=== PATIENT | female | born 1955 | race Caucasian/White ===

== ENCOUNTER 2017-06-03 11:34 | Emergency (ER) | payer OTHER ==
[~2017-06-03] VITALS: Ht 177.8 cm; Wt 86.0 kg
[~2017-06-03 11:34] MED LIST: ACET-1138 PO; ASPEC325 PO; ATOR-22 PO; B12 INJECT IM; DILT240C48 PO; DVN/160 PO; FOLI1TAB7 PO; FRRG PO; FRS/40 PO; LORA-741 PO; MCRK20 PO; METO1TAB69 PO; MULT-506 PO; NTRGSLP4 SL; OXYSR10 PO; RXC5 PO
[2017-06-03 11:36] VITALS: TEMP 36.7; Ht 177.8 cm; Wt 86.0 kg
[2017-06-03] MEDS ORDERED: SODIUM CHLORIDE 0.9% 1000ML 1,000 ML IV STA ×2 (12:30→13:17)
--- NOTE | 2017-06-03 12:34 | EMERGENCY ROOM VISIT NOTE ---
History Report prepared by [place]: Lee Sandra Under the Supervision of: Dr. Chase Whitten M.D. First contact with patient: 12:04 Chief Complaint: FALL Stated Complaint: 2 FALLS IN 2 DAYS, HIT HEAD History of Present Illness The patient is a 61 year old female who presents to the Emergency Room with complaints of a sudden fall occurring yesterday and the day before. The patient states that she had a GI bug a few days ago, and she had nausea, vomiting, and diarrhea, though she no longer has these symptoms. The patient states that she feels very dehydrated. She states that she passed out and fell, and she hit her chin and her right shoulder. She states that she also fell two days ago similarly. She states that she currently has a headache, and she currently takes aspirin. Source of History: patient Onset: yesterday and the day before Position: other (global) Quality: other (fall) Timing: other (sudden) Associated Symptoms: + headache Note: Associated symptoms: Dehydration. Review of Systems See HPI for pertinent positives & negatives. A total of 10 systems reviewed and were otherwise negative. Past Medical & Surgical Medical Problems: (1) DJD of right shoulder (2) Recurrent kidney stones Family History FH: myocardial infarction FATHER MOTHER Social History Smoking Status: Never Smoker Alcohol Use: none Drug Use: none Marital Status: Housing Status: lives with significant other Occupation Status: employed Current/Historical Medications Scheduled Acetaminophen (Tylenol Extra Strength), 1,000 MG PO Q8 Aspirin (Aspirin), 1 TAB PO QAM Atorvastatin (Lipitor), 20 MG PO QPM Diltiazem Hcl Coated Beads (Cartia Xt), 1 CAP PO BID Ferrous Gluconate (Ferrous Gluconate), 1 TAB PO DAILY Folic Acid (Folvite), 1 MG PO QAM Furosemide (Lasix), 40 MG PO QAM Metoprolol Succ (Toprol Xl) (Toprol-Xl ), 100 MG PO QAM Multivitamin (Multivitamin), 1 TAB PO QAM Oxycodone HCl (Oxycontin), 10 MG PO Q12 Potassium Chloride (Klor-Con), 40 MEQ PO HS Valsartan (Diovan), 160 MG PO BID [B12 Inject], 1 DOSE IM MONTHLY Scheduled PRN Lorazepam (Ativan), 0.5 MG PO TID PRN for Anxiety Nitroglycerin (Nitrostat), 1 TAB SL UD PRN for CHESTPAIN Oxycodone HCl (Oxycodone HCl), 5-10 MG PO Q4H PRN for Pain Allergies Coded Allergies: Hydrochlorothiazide (Verified Adverse Reaction, Unknown, "SEVERE" HYPONATREMIA, 10/29/16) Physical Exam Vital Signs Date Time Temp Pulse Resp B/P (MAP) Pulse Ox O2 Delivery O2 Flow Rate FiO2 06/03/17 14:39 71 17 124/72 100 06/03/17 12:46 58 13 141/78 99 Room Air 06/03/17 12:38 97 Room Air 06/03/17 12:23 65 108/89 97 66 117/73 86 79/53 06/03/17 12:02 59 06/03/17 11:36 36.7 70 16 114/71 99 Room Air Physical Exam GENERAL: Patient is a healthy-appearing well-nourished female. HEAD: Quarter sized contusion to the chine. Normocephalic EYES: Ocular movements intact pupils equal and react to light OROPHARYNX mucous membranes are moist no exudates present no erythema or edema present NECK: Supple no nuchal rigidity CHEST: Good equal expansion LUNGS: Clear and equal to auscultation CARDIAC: Normal S1 and S2 ABDOMEN: Soft nontender no guarding BACK: No CVA tenderness EXTREMITIES: Quarter sized contusion to the right humeral head. Tenderness to the right wrist. Normal muscle strength in all groups no clubbing cyanosis or edema NEURO: Patient is following commands and answering questions appropriately. Alert and oriented x3 Cranial Nerves 2-12 grossly intact Medical Decision & Procedures ER Provider Diagnostic Interpretation: Radiology results as stated below per my review and radiologist interpretation: RIGHT WRIST MIN 3 VIEWS ROUTINE CLINICAL HISTORY: Right wrist pain status post fall. COMPARISON: None FINDINGS: Alignment of the right carpal bones is anatomic. Oblique projection demonstrates a nondisplaced distal metadiaphyseal fracture of the right radius. There is no acute fracture of the distal right ulna. Carpal bones are intact. IMPRESSION: Acute nondisplaced distal metadiaphyseal fracture of the right radius. Electronically signed by: Javier Rendon M.D. 06/03/2017 1:47 PM Dictated Date/Time: 06/03/2017 1:45 PM \\RIGHT SHOULDER MIN 2 VIEWS ROUTINE CLINICAL HISTORY: Pt c/o Rt Shoulder pain Right pain COMPARISON: 10/29/2016 DISCUSSION: Anatomic alignment status post right shoulder arthroplasty. No acute bony abnormality. Mild degenerative change acromioclavicular joint. There is no evidence for soft tissue swelling. IMPRESSION: No acute process. Postoperative change is noted Electronically signed by: Neil Olivas M.D. 06/03/2017 1:45 PM Dictated Date/Time: 06/03/2017 1:44 PM HEAD WITHOUT CONTRAST (CT) CT DOSE: 614.27 mGy.cm HISTORY: Mental status change Pt c/o syncope, TECHNIQUE: Multiaxial CT images of the head were performed without the use of intravenous contrast. Comparison: 08/24/2014 Findings: The paranasal sinuses and mastoid air cells are clear. The calvarium and skull base are intact. The ventricles and sulci are within normal limits. There is no mass, hematoma, midline shift, or acute infarct. Impression: No acute intracranial abnormality. The above report was generated using voice recognition software. It may contain grammatical, syntax or spelling errors. Electronically signed by: Neil Olivas M.D. 06/03/2017 1:13 PM Dictated Date/Time: 06/03/2017 1:11 PM Laboratory Results 06/03/17 12:05 Red Blood Count 4.26, Mean Corpuscular Volume 83.1, Mean Corpuscular Hemoglobin 29.8, Mean Corpuscular Hemoglobin Concent 35.9, Mean Platelet Volume 9.5, Neutrophils (%) (Auto) 68.9, Lymphocytes (%) (Auto) 22.0, Monocytes (%) (Auto) 7.9, Eosinophils (%) (Auto) 0.6, Basophils (%) (Auto) 0.3, Neutrophils # (Auto) 7.26, Lymphocytes # (Auto) 2.31, Monocytes # (Auto) 0.83, Eosinophils # (Auto) 0.06, Basophils # (Auto) 0.03 06/03/17 12:05 Test 06/03/17 12:05 06/03/17 13:29 White Blood Count 10.52 K/uL (4.8-10.8) Red Blood Count 4.26 M/uL (4.2-5.4) Hemoglobin 12.7 g/dL (12.0-16.0) Hematocrit 35.4 % (37-47) Mean Corpuscular Volume 83.1 fL (80-100) Mean Corpuscular Hemoglobin 29.8 pg (25-34) Mean Corpuscular Hemoglobin Concent 35.9 g/dl (32-36) Platelet Count 286 K/uL (130-400) Mean Platelet Volume 9.5 fL (7.4-10.4) Neutrophils (%) (Auto) 68.9 % Lymphocytes (%) (Auto) 22.0 % Monocytes (%) (Auto) 7.9 % Eosinophils (%) (Auto) 0.6 % Basophils (%) (Auto) 0.3 % Neutrophils # (Auto) 7.26 K/uL (1.4-6.5) Lymphocytes # (Auto) 2.31 K/uL (1.2-3.4) Monocytes # (Auto) 0.83 K/uL (0.11-0.59) Eosinophils # (Auto) 0.06 K/uL (0-0.5) Basophils # (Auto) 0.03 K/uL (0-0.2) RDW Standard Deviation 55.9 fL (36.4-46.3) RDW Coefficient of Variation 18.2 % (11.5-14.5) Immature Granulocyte % (Auto) 0.3 % Immature Granulocyte # (Auto) 0.03 K/uL (0.00-0.02) Anion Gap 14.0 mmol/L (3-11) Est Creatinine Clear Calc Drug Dose 55.5 ml/min Estimated GFR () 52.0 Estimated GFR (Non- 44.9 BUN/Creatinine Ratio 7.1 (10-20) Calcium Level 9.2 mg/dl (8.5-10.1) Total Bilirubin 1.2 mg/dl (0.2-1) Direct Bilirubin 0.3 mg/dl (0-0.2) Aspartate Amino Transf (AST/SGOT) 22 U/L (15-37) Alanine Aminotransferase (ALT/SGPT) 21 U/L (12-78) Alkaline Phosphatase 189 U/L (45-117) Total Protein 7.1 gm/dl (6.4-8.2) Albumin 3.3 gm/dl (3.4-5.0) Thyroid Stimulating Hormone (TSH) 2.650 uIu/ml (0.300-4.500) Urine Color YELLOW Urine Appearance CLEAR (CLEAR) Urine pH 6.5 (4.5-7.5) Urine Specific [place] 1.004 (1.000-1.030) Urine Protein NEG (NEG) Urine Glucose (UA) NEG (NEG) Urine Ketones NEG (NEG) Urine Occult Blood NEG (NEG) Urine Nitrite NEG (NEG) Urine Bilirubin NEG (NEG) Urine Urobilinogen NEG (NEG) Urine Leukocyte Esterase SMALL (NEG) Urine WBC (Auto) /hpf (0-5) Urine RBC (Auto) /hpf (0-4) Urine Hyaline Casts (Auto) /lpf (0-5) Urine Epithelial Cells (Auto) /lpf (0-5) Urine Bacteria (Auto) (NEG) Urine RBC 0-4 /hpf (0-4) Urine WBC 1-5 /hpf (0-5) Urine Epithelial Cells >30 /lpf (0-5) Urine Bacteria 1+ (NEG) Labs reviewed by ED physician. Medications Administered Medications (Trade) Dose Ordered Sig/Elsy Route Start Time Stop Time Status Last Admin Dose Admin Sodium Chloride 1,000 ml @ 999 mls/hr Q1H1M STAT IV 06/03/17 12:30 06/03/17 13:30 DC 06/03/17 12:39 999 MLS/HR Sodium Chloride 1,000 ml @ 999 mls/hr Q1H1M STAT IV 06/03/17 13:17 06/03/17 14:17 DC 06/03/17 13:50 999 MLS/HR ECG Indication: other (fall) Rate (beats per minute): 58 Rhythm: sinus bradycardia Findings: no acute ischemic change, no ectopy ED Course 1220: Past medical records reviewed. The patient was evaluated in room B11. A complete history and physical examination was performed. 1230: Sodium Chloride 1000 ml @ 999 mls/hr IV 1317: Sodium Chloride 1000 ml @ 999 mls/hr IV 1417: Upon reexamination the patient is feeling well. I discussed results and treatment plan with the patient. She verbalizes agreement and understanding. The patient is ready for discharge. Medical Decision Differential diagnosis: Etiologies such as infection, hypoglycemia, electrolyte abnormalities, cardiac sources, intracerebral event, trauma, toxicologic, neurologic, as well as others were entertained. Medication Reconciliation: I attest that I have personally reviewed the patient' s current medication list Blood Pressure Screening: Patient was found to have normal blood pressure on screening and does not require follow up. This is a 61-year-old female who presents emergency department complaining of multiple falls over the past 2 days. The patient is concerned about a right shoulder as well as her right wrist. Right wrist appears to have fracture on x- ray. Shoulder and components I'll be to be intact and in place. Patient also hit her head therefore she was sent for CAT scan of the head. The patient has GCS of 15 however has no acute intracranial abnormality. The patient was offered pain medication in the emergency department however she refused it. An IV was established, the patient given normal saline bolus 2. The patient was found to be orthostatic in the emergency department. Serial abdominal examinations were performed on the patient in the emergency department and no tended patient exhibit surgical abdomen or abdominal tenderness. I do believe that the patient can be safely discharged home for follow-up with primary care physician. Patient was in agreement with the treatment plan. Impression Primary Impression: Wrist fracture, right Additional Impressions: Orthostatic hypotension Fall Dehydration Scribe Attestation The scribe's documentation has been prepared under my direction and personally reviewed by me in its entirety. I confirm that the note above accurately reflects all work, treatment, procedures, and medical decision making performed by me. Departure Information Dispostion Home / Self-Care Referrals Juana Rivera (PCP) Forms HOME CARE DOCUMENTATION FORM, IMPORTANT VISIT INFORMATION, School Instructions, Work Instructions Patient Instructions ED Dehydration, ED Fx Wrist General, [facility] Additional Instructions Increase fluids next 48 hours Follow up with DR James's office Take 600 mg Ibuprofen every 6 hours Take 1000 mg Tylenol every 6 hours You have been examined and treated today on an emergency basis only. This is not a substitute for, or an effort to provide, complete comprehensive medical care. It is impossible to recognize and treat all injuries or illnesses in a single emergency department visit. It is therefore important that you follow up closely with Dr Rivera. Call as soon as possible for an appointment. Thank you for your time and consideration. I look forward to speaking with you again soon. Please don't hesitate to call us if you have any questions. Problem Qualifiers Primary Impression: Wrist fracture, right Encounter type: initial encounter Fracture type: closed Qualified Codes: S62.101A - Fracture of unspecified carpal bone, right wrist, initial encounter for closed fracture Additional Impressions: Fall Encounter type: initial encounter Qualified Codes: W19.XXXA - Unspecified fall, initial encounter
[2017-06-03 12:38] VITALS: O2SAT 97
[2017-06-03 12:38] LABS: BASO % 0.3 %; BASO ABS # 0.03 K/uL (0-0.2); COMPLETE YES; EOS % 0.6 %; HEMATOCRIT 35.4 % (37-47); IG% 0.3 %; LYMPH ABS # 2.31 K/uL (1.2-3.4); MEAN CELL VOLUME 83.1 fL (80-100); MEAN CORPUSCULAR HEMOGLOBIN 29.8 pg (25-34); MEAN CORPUSCULAR HGB CONC 35.9 g/dl (32-36); MEAN PLATELET VOLUME 9.5 fL (7.4-10.4); MONO % 7.9 %; NEUT % 68.9 %; PLATELET COUNT 286 K/uL (130-400); RED BLOOD COUNT 4.26 M/uL (4.2-5.4); WHITE BLOOD COUNT 10.52 K/uL (4.8-10.8)
[2017-06-03 12:58] LABS: BUN/CREATININE RATIO 7.1 (10-20); CALCIUM 9.2 mg/dl (8.5-10.1); CREATININE 1.3 mg/dl (0.60-1.20); POTASSIUM 4.2 mmol/L (3.5-5.1)
[2017-06-03 13:08] LABS: THYROID STIMULATING HORMONE 2.65 uIu/ml (0.300-4.500)
--- NOTE | 2017-06-03 13:14 | DIAGNOSTIC IMAGING REPORT ---
HEAD WITHOUT CONTRAST (CT) CT DOSE: 614.27 mGy.cm HISTORY: Mental status change Pt c/o syncope, TECHNIQUE: Multiaxial CT images of the head were performed without the use of intravenous contrast. Comparison: 08/24/2014 Findings: The paranasal sinuses and mastoid air cells are clear. The calvarium and skull base are intact. The ventricles and sulci are within normal limits. There is no mass, hematoma, midline shift, or acute infarct. Impression: No acute intracranial abnormality. The above report was generated using voice recognition software. It may contain grammatical, syntax or spelling errors. Electronically signed by: Neil Olivas M.D. 06/03/2017 1:13 PM Dictated Date/Time: 06/03/2017 1:11 PM
--- NOTE | 2017-06-03 13:47 | DIAGNOSTIC IMAGING REPORT ---
RIGHT SHOULDER MIN 2 VIEWS ROUTINE CLINICAL HISTORY: Pt c/o Rt Shoulder pain Right pain COMPARISON: 10/29/2016 DISCUSSION: Anatomic alignment status post right shoulder arthroplasty. No acute bony abnormality. Mild degenerative change acromioclavicular joint. There is no evidence for soft tissue swelling. IMPRESSION: No acute process. Postoperative change is noted Electronically signed by: Neil Olivas M.D. 06/03/2017 1:45 PM Dictated Date/Time: 06/03/2017 1:44 PM
--- NOTE | 2017-06-03 13:48 | DIAGNOSTIC IMAGING REPORT ---
RIGHT WRIST MIN 3 VIEWS ROUTINE CLINICAL HISTORY: Right wrist pain status post fall. COMPARISON: None FINDINGS: Alignment of the right carpal bones is anatomic. Oblique projection demonstrates a nondisplaced distal metadiaphyseal fracture of the right radius. There is no acute fracture of the distal right ulna. Carpal bones are intact. IMPRESSION: Acute nondisplaced distal metadiaphyseal fracture of the right radius. Electronically signed by: Javier Rendon M.D. 06/03/2017 1:47 PM Dictated Date/Time: 06/03/2017 1:45 PM
[2017-06-03 13:54] LABS: URINE APPEARANCE CLEAR (CLEAR); URINE BILIRUBIN NEG (NEG); URINE COLOR YELLOW; URINE NITRITE NEG (NEG); URINE PH 6.5 (4.5-7.5); URINE SPECIFIC GRAVITY 1.004 (1.000-1.030); UROBILINOGEN NEG (NEG)
[2017-06-03 13:59] LABS: MANUAL MICROSCOPIC REQUIRED? YES; REVIEW REQ? NO
[2017-06-03 14:15] LABS: URINE BACTERIA 1+ (NEG); URINE RBC 0-4 /hpf (0-4)
[2017-06-03 14:39] VITALS: BP 124/72; PULSE 71; O2SAT 100
== END 2017-06-03 14:35 | disposition home or self-care (01) ==
LOC: C.EDB 11:36
DX: S62.101A Fracture of unspecified carpal bone, right wrist, initial encounter for closed fracture (principal); W19.XXXA Unspecified fall, initial encounter; R00.1 Bradycardia, unspecified; E86.0 Dehydration; I95.1 Orthostatic hypotension; M19.011 Primary osteoarthritis, right shoulder; Z87.442 Personal history of urinary calculi; Z79.82 Long term (current) use of aspirin; Z79.899 Other long term (current) drug therapy; Z88.8 Allergy status to other drugs, medicaments and biological substances; Z82.49 Family history of ischemic heart disease and other diseases of the circulatory system

== ENCOUNTER → 2018-03-30 | Outpatient (CLI) | payer OTHER ==
[~2018-03-30] MED LIST changes: -FOLI1TAB7 PO; +FOLI1TAB8 PO; +METO100T44 PO; -METO1TAB69 PO
--- NOTE | 2018-03-30 10:58 | DIAGNOSTIC IMAGING REPORT ---
HEAD WITHOUT CONTRAST (CT) CLINICAL HISTORY: 62 years-old Female with X. Acute syncope with fall. TECHNIQUE: Multiple axial CT images of the head were obtained without contrast. A dose lowering technique was utilized adhering to the principles of ALARA. CT DOSE: 690.05 mGycm COMPARISON: Head CT 06/03/2017. FINDINGS: No acute intracranial hemorrhage, midline shift, intracranial mass, hydrocephalus, territorial ischemia or abnormal extra-axial collection. Minimal low-attenuation within the periventricular white matter suggests chronic microvascular ischemic changes. Cerebral vascular calcifications are seen at the level of the skull base. The calvarium is intact. The paranasal sinuses, mastoid air cells, and middle ear cavities are clear. IMPRESSION: No acute intracranial abnormality. The above report was generated using voice recognition software. It may contain grammatical, syntax or spelling errors. Electronically signed by: Derek Roland M.D. 03/30/2018 10:57 AM Dictated Date/Time: 03/30/2018 10:54 AM
== END | disposition home or self-care (01) ==
LOC: C.CTS 10:37
PROVIDERS: ATTEND Psychiatry & Neurology Neurology
DX: R55 Syncope and collapse (principal); R41.0 Disorientation, unspecified; Z86.73 Personal history of transient ischemic attack (TIA), and cerebral infarction without residual deficits